=== PATIENT | male | born 1950 | race Hispanic/Latino ===

== ENCOUNTER 2017-02-17 09:53 | Emergency (ER) | payer MEDICARE ==
[2017-02-17 10:12] VITALS: BP 149/99
[2017-02-17 10:46] LABS: Basophils % (Auto) 0.6 % (0.0-1.8); Eosinophils % (Auto) 2.8 % (0.0-4.3); Hematocrit 51.3 % (35.5-45.6); Hemoglobin 17.4 gm/dl (11.8-15.2); Mean Corpuscular HGB Conc 34 % (32-34); Mean Corpuscular Hemoglobin 31 pg (28-32); Mean Corpuscular Volume 90 fl (84-94); Platelet Count 245 K/mm3 (140-440); Red Blood Count 5.72 M/mm3 (3.65-5.03); Red Cell Distribution Width 13.8 % (13.2-15.2); White Blood Count 9.4 K/mm3 (4.5-11.0)
[2017-02-17 10:49] LABS: Anion Gap 19 mmol/L; BUN/Creatinine Ratio 12.85; Blood Urea Nitrogen 9 mg/dL (9-20); Carbon Dioxide 23 mmol/L (22-30); Chloride 102.1 mmol/L (98-107); Glucose 77 mg/dL (75-100); Potassium 4.7 mmol/L (3.6-5.0); Sodium 139 mmol/L (137-145)
[2017-02-17 10:58] LABS: Urine Drugs of Abuse Note Disclamer
--- NOTE | 2017-02-17 11:03 | Emergency Department Report ---
ED General Adult HPI - General Chief complaint: Alcohol Stated complaint: DETOX Time Seen by Provider: 02/17/17 10:25 Source: patient, EMS Mode of arrival: Wheelchair Limitations: No Limitations - History of Present Illness Initial comments: The patient is requesting alcohol detox. He states that he was in a 45 day program in [place] until he moved with a friend to an extended stay hotel here in [facility]. He's resided therefore one to 2 weeks. He states that he has been binge drinking with 12 beers this a.m. He is now despite depressed because of his situation he states. He did not voice any sort of suicidal or violent ideation. He is taking Lexapro and Vistaril for chronic depression and anxiety. He reports no hallucinosis. He denies a history of cirrhosis. He likewise denies any syncope or injury. -: week(s) Associated Symptoms: denies other symptoms (other than long-term depression) Treatments Prior to Arrival: none - Related Data Allergies Allergy/AdvReac Type Severity Reaction Status Date / Time No Known Allergies Allergy Unverified 02/17/17 10:12 ED Review of Systems ROS: Stated complaint: DETOX Other details as noted in HPI Constitutional: denies: chills, fever Eyes: denies: eye pain, eye discharge, vision change ENT: denies: ear pain, throat pain Respiratory: denies: cough, shortness of breath, wheezing Cardiovascular: denies: chest pain, palpitations Endocrine: no symptoms reported Gastrointestinal: denies: abdominal pain, nausea, diarrhea Genitourinary: denies: urgency, dysuria Musculoskeletal: denies: back pain, joint swelling, arthralgia Skin: denies: rash, lesions Neurological: denies: headache, weakness, paresthesias Psychiatric: as per HPI, depression. denies: anxiety Hematological/Lymphatic: denies: easy bleeding, easy bruising ED Past Medical Hx - Past Medical History Previous Medical History?: Yes Hx Hypertension: Yes Hx Psychiatric Treatment: Yes (depression, anxiety, etoh abuse) Additional medical history: noncompliant with all meds - Surgical History Past Surgical History?: No - Social History Smoking Status: Never Smoker Substance Use Type: Alcohol ED Physical Exam - General Limitations: No Limitations General appearance: alert, in no apparent distress - Head Head exam: Present: atraumatic, normocephalic - Eye Eye exam: Present: normal appearance, PERRL, EOMI. Absent: scleral icterus - ENT ENT exam: Present: normal exam, mucous membranes moist - Neck Neck exam: Present: normal inspection. Absent: tenderness, meningismus - Respiratory Respiratory exam: Present: normal lung sounds bilaterally. Absent: respiratory distress - Cardiovascular Cardiovascular Exam: Present: regular rate, normal rhythm. Absent: systolic murmur, diastolic murmur, rubs, gallop - GI/Abdominal GI/Abdominal exam: Present: soft, normal bowel sounds. Absent: distended, tenderness, guarding, rebound, rigid - Rectal Rectal exam: Present: deferred - Extremities Exam Extremities exam: Present: normal inspection - Back Exam Back exam: Present: normal inspection. Absent: CVA tenderness (R), CVA tenderness (L), muscle spasm, paraspinal tenderness, vertebral tenderness - Neurological Exam Neurological exam: Present: alert, oriented X3, CN II-XII intact. Absent: motor sensory deficit - Psychiatric Psychiatric exam: Present: normal mood, flat affect - Skin Skin exam: Present: warm, dry, intact, normal color. Absent: rash ED Course Vital Signs 02/17/17 02/17/17 02/17/17 10:00 10:08 10:16 Temperature 98.2 F Pulse Rate 85 Respiratory 16 Rate Blood Pressure 149/99 149/99 O2 Sat by Pulse 95 96 94 Oximetry 02/17/17 02/17/17 10:30 12:14 Temperature Pulse Rate Respiratory 16 Rate Blood Pressure O2 Sat by Pulse 92 92 Oximetry - Reevaluation(s) Reevaluation #1: Patient is requesting Ativan now. I am going to put him on some prophylactic medication. It is uncertain as to whether he is likely to develop a withdrawal syndrome but it is possible. Mental health counselor has been informed of his detox request. He will be placed in holding status. 02/17/17 12:17 Reevaluation #2: Mental health has been consult on this patient. Apparently they have multiple consults now and there may be substantial delay. 02/17/17 12:46 ED Medical Decision Making - Lab Data Result diagrams: 02/17/17 10:20 02/17/17 10:20 Laboratory Results - last 24 hr 02/17/17 02/17/17 10:20 10:20 WBC 9.4 RBC 5.72 H Hgb 17.4 H Hct 51.3 H MCV 90 MCH 31 MCHC 34 RDW 13.8 Plt Count 245 Lymph % (Auto) 17.1 [place] % (Auto) 10.7 H Eos % (Auto) 2.8 Baso % (Auto) 0.6 Lymph # 1.6 [place] # 1.0 H Eos # 0.3 Baso # 0.1 Seg Neutrophils % 68.8 Seg Neutrophils # 6.4 Sodium 139 Potassium 4.7 Chloride 102.1 Carbon Dioxide 23 Anion Gap 19 BUN 9 Creatinine 0.7 L Estimated GFR > 60 BUN/Creatinine Ratio 12.85 Glucose 77 Calcium 9.0 Laboratory Results - last 24 hr 02/17/17 02/17/17 02/17/17 10:20 10:20 10:20 WBC 9.4 RBC 5.72 H Hgb 17.4 H Hct 51.3 H MCV 90 MCH 31 MCHC 34 RDW 13.8 Plt Count 245 Lymph % (Auto) 17.1 [place] % (Auto) 10.7 H Eos % (Auto) 2.8 Baso % (Auto) 0.6 Lymph # 1.6 [place] # 1.0 H Eos # 0.3 Baso # 0.1 Seg Neutrophils % 68.8 Seg Neutrophils # 6.4 Sodium 139 Potassium 4.7 Chloride 102.1 Carbon Dioxide 23 Anion Gap 19 BUN 9 Creatinine 0.7 L Estimated GFR > 60 BUN/Creatinine Ratio 12.85 Glucose 77 Calcium 9.0 Urine Color Urine Turbidity Urine pH Ur Specific [place] Urine Protein Urine Glucose (UA) Urine Ketones Urine Blood Urine Nitrite Urine Bilirubin Urine Urobilinogen Ur Leukocyte Esterase Urine WBC (Auto) Urine RBC (Auto) Urine Bacteria (Auto) Urine Mucus Urine Opiates Screen Urine Methadone Screen Ur Barbiturates Screen Ur Phencyclidine Scrn Ur Amphetamines Screen U Benzodiazepines Scrn Urine Cocaine Screen U Marijuana (THC) Screen Drugs of Abuse Note Plasma/Serum Alcohol 0.10 H 02/17/17 02/17/17 10:50 10:50 WBC RBC Hgb Hct MCV MCH MCHC RDW Plt Count Lymph % (Auto) [place] % (Auto) Eos % (Auto) Baso % (Auto) Lymph # [place] # Eos # Baso # Seg Neutrophils % Seg Neutrophils # Sodium Potassium Chloride Carbon Dioxide Anion Gap BUN Creatinine Estimated GFR BUN/Creatinine Ratio Glucose Calcium Urine Color Yellow Urine Turbidity Clear Urine pH 5.0 Ur Specific [place] 1.006 Urine Protein <15 mg/dl Urine Glucose (UA) Neg Urine Ketones Neg Urine Blood Sm Urine Nitrite Neg Urine Bilirubin Neg Urine Urobilinogen < 2.0 Ur Leukocyte Esterase Neg Urine WBC (Auto) < 1.0 Urine RBC (Auto) 3.0 Urine Bacteria (Auto) 1+ Urine Mucus Few Urine Opiates Screen Presumptive negative Urine Methadone Screen Presumptive negative Ur Barbiturates Screen Presumptive negative Ur Phencyclidine Scrn Presumptive negative Ur Amphetamines Screen Presumptive negative U Benzodiazepines Scrn Presumptive negative Urine Cocaine Screen Presumptive negative U Marijuana (THC) Screen Presumptive negative Drugs of Abuse Note Disclamer Plasma/Serum Alcohol Critical care attestation.: If time is entered above; I have spent that time in minutes in the direct care of this critically ill patient, excluding procedure time. ED Disposition Clinical Impression: Alcohol abuse Disposition: DC/TX PSY HOSP/PSY UNIT Is pt being admited?: No Does the pt Need Aspirin: No Condition: Stable Referrals: PRIMARY CARE, [Primary Care Provider] - 3-5 Days Time of Disposition: 12:17
[2017-02-17 11:07] LABS: Bacteria,Urine 1+ /HPF (Negative); Bilirubin,Urine NEG (Negative); Blood,Urine SM (Negative); Ketones,Urine NEG (Negative); Leukocyte Esterase,Urine NEG (Negative); Mucus,Urine FEW /HPF; Nitrite,Urine NEG (Negative); Protein,Urine <15 mg/dL mg/dL (Negative); Urobilinogen,Urine < 2.0 mg/dL (<2.0); WBC,Urine < 1.0 /HPF (0.0-6.0)
[2017-02-17] MEDS ORDERED: ATIVAN PO ONE (12:12)
[2017-02-17] MEDS ORDERED: MILK OF MAGNESIA PO PRN (12:19)
[2017-02-17] MEDS ORDERED: ALUM-MAG HYDROX-SIMETH 200-200-20MG/5ML PO PRN (12:19)
[2017-02-17] MEDS ORDERED: TYLENOL PO PRN (12:19)
--- NOTE | 2017-02-17 15:40 | Consultation ---
History of Present Illness - Reason for Consult Consult date: 02/17/17 Reason for consult: psychiatry, alcohol use disorder - Chief Complaint Chief complaint: "I relapsed" 66 year old white male seen for psychiatric evaluation. The patient is requesting alcohol detox. He states that he was in a 45 day program in [place] until he moved with a friend to an extended stay hotel here in [facility] one week ago. He states that he has been binge drinking with 12 beers this morning and every day x 1 week. Alcohol level is 0.10. No SI, no HI. No psychotic symptoms reported or elicited. He is taking Lexapro and Vistaril for chronic depression and anxiety. Depressive symptoms are feeling a lack of purpose, lack of energy and motivation. Medications and Allergies Allergies Allergy/AdvReac Type Severity Reaction Status Date / Time No Known Allergies Allergy Unverified 02/17/17 10:12 Active Meds: Active Medications Acetaminophen (Tylenol) 650 mg PO Q4HR PRN PRN Reason: Pain MILD(1-3)/Fever >100.5/PHAN Al Hydrox/Mg Hydrox/Simethicone (Alum-Mag Hydrox-Simeth [id number]/5ml) 30 ml PO Q4HR PRN PRN Reason: Indigestion Lorazepam (Ativan) 0.5 mg PO BID REKHA Magnesium Hydroxide (Milk Of Magnesia) 30 ml PO Q12HR PRN PRN Reason: Constipation Past psychiatric history - Past Medical History Past Medical History: hypertension - past Psychiatric treatment and history Psych: Anxiety, Addictions, Depression psychiatric treatment history: drinking alcohol since the last . previous detox treatment at [facility] and longer term treatment at [facility] and [facility] - Social History Social history: other (retired commercial pilot) Mental Status Exam - Vital signs Last Vital Signs Temp 98.2 F 02/17/17 10:08 Pulse 85 02/17/17 10:08 Resp 16 02/17/17 12:14 BP 149/99 02/17/17 10:16 Pulse Ox 92 02/17/17 12:14 - Exam Orientation: time, place, person Affect: anxious Mood: appropriate Thought content: other (no SI, no HI) Thought Process: Intact Perceptions: none Speech: normal rate and pattern Concentration: focused Motor activity: normal Level of consciousness: alert Memory: Intact, Recent Intact, Remote Intact Sleep Symptoms: Difficulty Falling Asleep Appetite: decreased Interaction: cooperative Results Result Diagrams: 02/17/17 10:20 02/17/17 10:20 Abnormal lab results 02/17/17 02/17/17 02/17/17 Range/Units 10:20 10:20 10:20 RBC 5.72 H (3.65-5.03) M/mm3 Hgb 17.4 H (11.8-15.2) gm/dl Hct 51.3 H (35.5-45.6) % [place] % (Auto) 10.7 H (0.0-7.3) % [place] # 1.0 H (0.0-0.8) K/mm3 Creatinine 0.7 L (0.8-1.5) mg/dL Plasma/Serum Alcohol 0.10 H (0-0.07) gm% All other labs normal. Assessment and Plan Assessment and plan: Impression: Alcohol use disorder: at risk for withdrawal. No withdrawal currently but drank 12 beers this am Major depressive disorder: on Lexapro Anxiety disorder unspecified: Vistaril prescribed by outpatient provider Recommendation: Transfer to inpatient treatment for alcohol detox this afternoon.
[2017-02-17] MEDS ORDERED: ATIVAN PO SCH (22:00)
== END 2017-02-17 16:01 ==
LOC: ED 09:53
DX: F10.10 Alcohol abuse, uncomplicated (principal); I10 Essential (primary) hypertension; F41.9 Anxiety disorder, unspecified; F32.9 Major depressive disorder, single episode, unspecified
CPT/HCPCS: 36415; 80048; 80307; 81001; 85025; 99285; G0480; 80320

== ENCOUNTER 2020-02-08 00:12 | Emergency (ER) | payer MEDICARE ==
[2020-02-08 00:54] LABS: Basophils # (Auto) 0.1 K/mm3 (0.0-0.1); Basophils % (Auto) 0.7 % (0.0-1.8); Eosinophils # (Auto) 0.1 K/mm3 (0.0-0.4); Eosinophils % (Auto) 1.6 % (0.0-4.3); Hematocrit 48.3 % (35.5-45.6); Hemoglobin 16.4 gm/dl (11.8-15.2); Lymphocytes # (Auto) 2.6 K/mm3 (1.2-5.4); Lymphocytes % (Auto) 30.7 % (13.4-35.0); Mean Corpuscular HGB Conc 34 % (32-34); Mean Corpuscular Volume 95 fl (84-94); Monocytes # (Auto) 0.8 K/mm3 (0.0-0.8); Monocytes % (Auto) 9.7 % (0.0-7.3); Platelet Count 252 K/mm3 (140-440); Red Blood Count 5.08 M/mm3 (3.65-5.03); Red Cell Distribution Width 14.4 % (13.2-15.2)
[2020-02-08 01:12] LABS: BUN/Creatinine Ratio 13; Blood Urea Nitrogen 12 mg/dL (9-20); Calcium 8.7 mg/dL (8.4-10.2); Hemolysis Index 15
[2020-02-08] MEDS ORDERED: MAGNESIUM SULFATE 2 GM/50 ML BAG IV ONE (02:02)
[2020-02-08] MEDS ORDERED: ONDANSETRON 4 MG/2 ML INJ IV ONE (02:02)
[2020-02-08] MEDS ORDERED: FOLIC ACID 1 MG, MULTIPLE VITAMIN INJ, ADULT 10 ML in SODIUM CHLORIDE 0.9% 1000 ML 1,00... IV ONE (02:02)
--- NOTE | 2020-02-08 02:05 | Emergency Department Report ---
HPI - General Chief Complaint: Alcohol PUI?: No Time Seen by Provider: 02/08/20 01:56 - HPI HPI: Room 6 The patient is a 69-year-old male present with a chief complaint of alcoholism. The patient states he came to the emergency department because he drinks too much alcohol. The patient states once he starts drinking alcohol he cannot stop. Patient admits to nausea but denies vomiting. When asked if he wants to go to rehab facility patient states he does not ED Past Medical Hx - Past Medical History Previous Medical History?: Yes Hx Hypertension: Yes Hx Psychiatric Treatment: Yes (depression, anxiety, etoh abuse) Additional medical history: noncompliant with all meds - Surgical History Past Surgical History?: No - Family History Family history: no significant - Social History Smoking Status: Never Smoker Substance Use Type: None (Denies illicit drug use), Alcohol (Daily) - Medications Home Medications: Home Medications Medication Instructions Recorded Confirmed Last Taken Type Escitalopram Oxalate [Lexapro] 20 mg PO DAILY 02/08/20 02/08/20 Unknown History verapamiL [Calan] 240 mg PO DAILY 02/08/20 02/08/20 Unknown History ED Review of Systems ROS: Stated complaint: V/ALCOHOL POISIONING Other details as noted in HPI Gastrointestinal: nausea. denies: vomiting Physical Exam - Physical Exam Vital Signs: Vital Signs 02/08/20 00:29 Temperature 99.2 F Pulse Rate 102 H Respiratory 20 Rate Blood Pressure 188/118 O2 Sat by Pulse 95 Oximetry Physical Exam: GENERAL: The patient is well-developed well-nourished male lying on stretcher not appearing to be in acute distress. [] HEENT: Normocephalic. Atraumatic. Extraocular motions are intact. Patient has moist mucous membranes. NECK: Supple. Trachea midline CHEST/LUNGS: Clear to auscultation. There is no respiratory distress noted. HEART/CARDIOVASCULAR: Regular. There is no tachycardia. There is no gallop rub or murmur. ABDOMEN: Abdomen is soft, nontender. Patient has normal bowel sounds. There is no abdominal distention. SKIN: There is no rash. There is no edema. There is no diaphoresis. NEURO: The patient is awake, alert, and oriented. The patient is cooperative. The patient has no focal neurologic deficits. The patient has normal speech MUSCULOSKELETAL: TThere is no evidence of acute injury. ED Course Vital Signs 02/08/20 00:29 Temperature 99.2 F Pulse Rate 102 H Respiratory 20 Rate Blood Pressure 188/118 O2 Sat by Pulse 95 Oximetry ED Medical Decision Making - Lab Data Result diagrams: 02/08/20 00:45 02/08/20 00:45 Laboratory Tests 02/08/20 02/08/20 02/08/20 00:45 00:45 00:45 WBC 8.3 RBC 5.08 H Hgb 16.4 H Hct 48.3 H MCV 95 H MCH 32 MCHC 34 RDW 14.4 Plt Count 252 Lymph % (Auto) 30.7 [place] % (Auto) 9.7 H Eos % (Auto) 1.6 Baso % (Auto) 0.7 Lymph # 2.6 [place] # 0.8 Eos # 0.1 Baso # 0.1 Seg Neutrophils % 57.3 Seg Neutrophils # 4.8 Sodium 141 Potassium 4.3 Chloride 103.6 Carbon Dioxide 23 Anion Gap 19 BUN 12 Creatinine 0.9 Estimated GFR > 60 BUN/Creatinine Ratio 13 Glucose 108 H Calcium 8.7 Total Bilirubin Direct Bilirubin Indirect Bilirubin AST ALT Alkaline Phosphatase Total Protein Albumin Albumin/Globulin Ratio Lipase Plasma/Serum Alcohol 0.18 H 02/08/20 01:57 WBC RBC Hgb Hct MCV MCH MCHC RDW Plt Count Lymph % (Auto) [place] % (Auto) Eos % (Auto) Baso % (Auto) Lymph # [place] # Eos # Baso # Seg Neutrophils % Seg Neutrophils # Sodium Potassium Chloride Carbon Dioxide Anion Gap BUN Creatinine Estimated GFR BUN/Creatinine Ratio Glucose Calcium Total Bilirubin 0.30 Direct Bilirubin < 0.2 Indirect Bilirubin 0.1 AST 56 H ALT 44 Alkaline Phosphatase 88 Total Protein 7.3 Albumin 4.0 Albumin/Globulin Ratio 1.2 Lipase 25 Plasma/Serum Alcohol - Differential Diagnosis Alcoholism Critical care attestation.: If time is entered above; I have spent that time in minutes in the direct care of this critically ill patient, excluding procedure time. ED Disposition Clinical Impression: Alcoholism, Alcohol intoxication Disposition: DC-01 TO HOME OR SELFCARE Is pt being admited?: No Does the pt Need Aspirin: No Condition: Stable Instructions: Alcohol Intoxication (ED), Abuse of Alcohol (ED) Additional Instructions: Please follow-up with 1 of the outpatient referrals that you were given by our mental health counselor if you choose to seek assistance with your alcohol dependence. Return to the emergency department with any acute distress. Referrals: [facility] [Provider Group] - 3-5 Days LAITH ALICEA MD [Staff Physician] - 3-5 Days PRIMARY CAREMD [Primary Care Provider] - 3-5 Days
[2020-02-08] MEDS ORDERED: THIAMINE 100 MG TAB PO ONE (02:15)
[2020-02-08 02:17] LABS: Alanine Aminotransferase 44 units/L (7-56)
[2020-02-08 02:18] LABS: Bilirubin,Direct < 0.2 mg/dL (0-0.2)
[2020-02-08] MEDS ORDERED: LORazepam 2 MG/ML VIAL IV PRN ×2 (03:13)
[2020-02-08] MEDS ORDERED: cloNIDine 0.2 MG TAB PO ONE (03:38)
[2020-02-08] MEDS ORDERED: cloNIDine 0.2 MG TAB ONE (03:41)
[2020-02-08] MEDS ORDERED: METOCLOPRAMIDE 10 MG/2 ML INJ IV ONE (05:52)
[2020-02-08] MEDS ORDERED: hydrALAZINE 20 MG/1 ML INJ IV ONE (05:56)
[2020-02-08] MEDS ORDERED: hydrALAZINE 20 MG/1 ML INJ ONE (05:59)
[2020-02-08] MEDS: LORazepam 2 MG/ML VIAL IV PRN ×2 (07:10→09:14)
[2020-02-08 11:43] VITALS: BP 152/99
== END 2020-02-08 13:15 | disposition home or self-care (01) ==
LOC: ED 00:12
DX: F10.129 Alcohol abuse with intoxication, unspecified (principal); I10 Essential (primary) hypertension; F32.9 Major depressive disorder, single episode, unspecified; Z79.899 Other long term (current) drug therapy
CPT/HCPCS: 36415; 80048; 80076; 83690; 85025; 96365; 96366; 96368; 96375; 99284; J0360; J2060; J2405; J2765; J3411; J3475; 80320; G0480